=== PATIENT | male | born 1940 | race Caucasian/White ===

== ENCOUNTER 2017-04-11 10:42 | Day surgery (SDC) | payer MEDICARE ==
[~2017-04-11 10:42] MED LIST: ACETAMINOPHEN 1,000 MG/100 ML BTL IV ONE
[2017-04-11] MEDS ORDERED: SEVOFLURANE 250 ML INH ONE (10:43)
[2017-04-11] MEDS ORDERED: ONDANSETRON HCL IV 4 MG/2 ML VIAL IVP ONE (10:43)
[2017-04-11] MEDS ORDERED: KETOROLAC 30 MG/ML VIAL IVP ONE (10:43)
[2017-04-11] MEDS ORDERED: PROPOFOL 10 MG/ML VIAL IV ONE (10:43)
[2017-04-11] MEDS ORDERED: BUPIVACAINE 0.25% W/EPI MPF 30ML VIAL IVP ONE (10:43)
[2017-04-11] MEDS ORDERED: FENTANYL PF 100MCG/2ML VIAL IV ONE (10:43)
[2017-04-11] MEDS ORDERED: MIDAZOLAM HCL 2MG/2ML VIAL IV ONE (10:43)
[2017-04-11] MEDS ORDERED: LIDOCAINE 2% MDV (20MG/ML) 20ML VIAL IV ONE (10:43)
--- NOTE | 2017-04-12 12:31 | Operative Note ---
DATE OF SURGERY: 04/11/2017 Surgeon: Kiran Strauss DO PREOPERATIVE DIAGNOSES: 1. Torn medial meniscus of the right knee. 2. Chondrocalcinosis, right knee. 3. Osteoarthritis, right knee. POSTOPERATIVE DIAGNOSES: 1. Torn lateral meniscus of the right knee. 2. Osteoarthritis, right knee. 3. Synovitis, right knee. 4. Chondrocalcinosis of the right knee. OPERATION: 1. Arthroscopic partial lateral meniscectomy, right knee. 2. Arthroscopic partial synovectomy, right knee (2 compartments). DESCRIPTION OF PROCEDURE: This 76-year-old male was taken to the operating room, placed in the supine position on the operating room table. General anesthesia was induced. The right lower extremity was elevated. It was exsanguinated and the tourniquet inflated to 300 mmHg. Arthroscopic knee miller applied. Right knee prepped with Hibiclens and draped in the usual sterile fashion. An inferolateral portion was established for the 4 mm arthroscope. Initial evaluation of the joint demonstrated very severe osteoarthritis of the patellofemoral joint with the lateral facet and lateral femoral condyle showing full-thickness articular cartilage loss and the remaining articular cartilage showing grade 3 changes. Severe chondrocalcinosis was also present. The intensive synovitis was present and partial synovectomy was performed. The medial compartment was entered and again, more synovitis with chondrocalcinosis was noted. Minimal degenerative changes to the articular cartilage were present there. The meniscus did not demonstrate any significant tearing. The intracondylar notch was seen to be normal. There was chondrocalcinosis there as well. The lateral compartment was entered and a flap tear of the anterior horn and then a radial tear of the body at approximately the 9:30 position was present. We resected back to the apex of the tear anteriorly leaving only about 2-3 mm of rim remaining. Posteriorly it was slightly more, and this tear did not enter the popliteal hiatus. Extensive chondrocalcinosis was present there as well. The meniscus was then re-probed and found to be stable. The articular cartilage of the weightbearing surface of the lateral femoral condyle demonstrated grade 2 changes. The joint was copiously irrigated and suctioned. The portals were infiltrated with 0.25% Marcaine with epinephrine. Sutures were placed in these wounds, 4-0 nylon suture. The sterile dressings were applied and the patient was taken to the recovery room in satisfactory condition. GROSS PATHOLOGY: There was extensive chondrocalcinosis with a severe grade 4 lesion at the patellofemoral articulation laterally with severe grade 3 changes noted throughout the remainder of the patellofemoral joint, grade 2 changes noted in the weightbearing surface of the lateral femoral condyle. There was a complex tear of the lateral meniscus as described and intense synovitis in all compartments and partial synovectomy performed as well. CC: ISABEL FLORES MD, FACP MTDD
== END 2017-04-11 13:50 | disposition home or self-care (01) ==
LOC: SUR 10:42
PROVIDERS: ATTEND Orthopaedic Surgery
DX: S83.281A Other tear of lateral meniscus, current injury, right knee, initial encounter (principal); M11.261 Other chondrocalcinosis, right knee; E11.9 Type 2 diabetes mellitus without complications; Z79.84 Long term (current) use of oral hypoglycemic drugs
CPT/HCPCS: 29881; 29876; 01400; 36416; 82948; J1885; J2405; J3010

== ENCOUNTER 2017-06-03 18:41 | Emergency (ER) | payer MEDICARE ==
[2017-06-03] MEDS ORDERED: ASPIRIN 325 MG TABLET PO ONE (19:11)
--- NOTE | 2017-06-03 19:12 | Emergency Department Record ---
History of Present Illness - General Chief Complaint: Chest Pain Stated Complaint: CHEST AND SHOULDER PAIN Time Seen by Provider: 06/03/17 19:11 Source: Patient Mode of Arrival: Ambulatory - History of Present Illness Initial Comments: The patient states that he developed substernal chest pain around 5 p.m. tonight while watching FB on television. It radiates to both shoulders but NOT to his back. Patient denies nausea, diaphoresis, SOB, ERICKA, palpitations or belching. He describes it as moderate severity and "maybe gas, 'hard to describe.'" He denies NV, PE, DVT, CVA, htn, chol elevation, or ever smoking. He is an oral diabetic. His father of an NV at age 75. [address] Strauss did an arthroscopy on his right knee 04-21-17 and found 'gout , arthritis." Since that time he has had swelling in that leg which is not resolving. He says it is warmer and may be pinker. MD Complaint: Chest pain Onset/Timin -: Hour(s) Onset: During rest Pain Location: Substernal Pain Radiation: RUE, LUE Severity: Moderate Quality: Aching Consistency: Constant Improves With: Nothing Treatments Prior to Arrival: None, Aspirin Treatment Prior to Arrival Comment:: 81mg this am. - Related Data Previous Rx's Medication Instructions Recorded Cephalexin [Keflex] 500 mg PO QID #40 cap 06/03/17 Allergies Allergy/AdvReac Type Severity Reaction Status Date / Time No Known Drug Allergies Allergy Verified 06/03/17 18:52 Travel Screening - Travel/Exposure Within Last 30 Days Have you traveled within the last 30 days?: No - Travel/Exposure Within Last Year Have you traveled outside the [place] in the last year?: No - Additonal Travel Details Have you been exposed to anyone with a communicable illness?: No - Travel Symptoms Symptom Screening: None Review of Systems Reviewed: No additional complaints except as noted below Constitutional: Reports: As per HPI. Denies: Chills, Fever, Malaise, Night sweats, Weakness, Weight change Eyes: Reports: As per HPI. Denies: Eye discharge, Eye pain, Photophobia, Vision change ENT: Reports: As per HPI. Denies: Congestion, Dental pain, Ear pain, Epistaxis , Hearing loss, Throat pain Respiratory: Reports: As per HPI. Denies: Cough, Dyspnea, Hemoptysis, Stridor, Wheezes Cardiovascular: Reports: As per HPI. Denies: Arrhythmia, Chest pain, Dyspnea on exertion, Edema, Murmurs, Orthopnea, Palpitations, Paroxysmal nocturnal dyspnea, Rheumatic Fever, Syncope Endocrine: Reports: As per HPI. Denies: Fatigue, Heat or cold intolerance, Polydipsia, Polyuria Gastrointestinal: Reports: As per HPI. Denies: Abdominal pain, Constipation, Diarrhea, Hematemesis, Hematochezia, Melena, Nausea, Vomiting Genitourinary: Reports: As per HPI. Denies: Dysuria, Frequency, Hematuria, Incontinence, Retention, Testicular pain, Testicular mass, Urgency Musculoskeletal: Reports: As per HPI. Denies: Arthralgia, Back pain, Gout, Joint swelling, Myalgia, Neck pain Skin: Reports: As per HPI. Denies: Bruising, Change in color, Change in hair/ nails, Lesions, Pruritus, Rash Neurological: Reports: As per HPI. Denies: Abnormal gait, Confusion, Headache, Numbness, Paresthesias, Seizure, Tingling, Tremors, Vertigo, Weakness Psychiatric: Reports: As per HPI. Denies: Anxiety, Auditory hallucinations, Depression, Homicidal thoughts, Suicidal thoughts, Visual hallucinations Hematological/Lymphatic: Reports: As per HPI. Denies: Anemia, Blood Clots, Easy bleeding, Easy bruising, Swollen glands Past Medical History - SOCIAL HISTORY Smoking Status: Never smoker Alcohol Use: None Drug Use: None - RESPIRATORY Hx Respiratory Disorders: Yes Hx Bronchitis: Yes - CARDIOVASCULAR Hx Cardio Disorders: No - NEURO Hx Neuro Disorders: No - GI Hx GI Disorders: Yes Hx Pancreatitis: Yes - Hx Genitourinary Disorders: No - ENDOCRINE Hx Endocrine Disorders: Yes Hx Diabetes: Yes (type II) Comment:: doesnt check blood sugar - MUSCULOSKELETAL Hx Musculoskeletal Disorders: Yes Hx Arthritis: Yes (Left knee) - PSYCH Hx Psych Problems: No - HEMATOLOGY/ONCOLOGY Hx Hematology/Oncology Disorders: No Hx Cancer: Yes (lip) Family Medical History Any Significant Family History?: No Hx Cancer: Mother Hx Diabetes: Father Hx Heart Disease: Father Physical Exam - General General Appearance: Alert, Oriented x3, Cooperative, No acute distress - Head Head exam: Normal inspection - Eye Eye exam: Normal appearance, PERRL Pupils: Normal accommodation - ENT ENT exam: Normal exam, Mucous membranes moist, Normal external ear exam, Normal orophraynx, TM's normal bilaterally Ear exam: Normal external inspection. negative: External canal tenderness Nasal Exam: Normal inspection. negative: Discharge, Sinus tenderness Mouth exam: Normal external inspection, Tongue normal Teeth exam: Normal inspection. negative: Dental caries Throat exam: Normal inspection. negative: Tonsillar erythema, Tonsillar exudate - Neck Neck exam: Normal inspection, Full ROM. negative: Tenderness - Respiratory Respiratory exam: Normal lung sounds bilaterally. negative: Respiratory distress - Cardiovascular Cardiovascular Exam: Regular rate, Normal rhythm, Normal heart sounds - GI/Abdominal GI/Abdominal exam: Soft, Normal bowel sounds. negative: Tenderness - Rectal Rectal exam: Deferred - exam: Deferred - Extremities Extremities exam: Normal inspection, Full ROM, Normal capillary refill, Pedal edema (bilateral, right greater than left leg. Right legs is mildly erythematous and warmer than the othe leg to below the knee. Skin is circumferentially tight from the swelling with no distinct calf tenderness.). negative: Tenderness - Back Back exam: Reports: Normal inspection, Full ROM. Denies: Muscle spasm, Rash noted, Tenderness - Neurological Neurological exam: Alert, Normal gait, Oriented X3, Reflexes normal - Psychiatric Psychiatric exam: Normal affect, Normal mood - Skin Skin exam: Dry, Intact, Normal color, Warm Course Vital Signs 06/03/17 18:47 Temperature 97.4 F L Pulse Rate 72 Respiratory 20 Rate Blood Pressure 161/82 Pulse Ox 96 - Reevaluation(s) Reevaluation #1: Patient stats the nitros helped his chest, but he is uncertain if it is completely gone. He states his leg hurts more than his chest ever did. 06/03/17 20:27 Reevaluation #2: It ws recommended for patient to be admitted for chest pain and for right lower leg cellulitis. Patient is refusing amissin and wishes discharge home. He states he will recheck with his PCP this week. but refuses to stay here tonight. He also is refusing to stay for repeat troponin. Son at bedside is unable to change his father's mind. 06/03/17 21:21 Patient is adamant about leaving AMA. He agrees to come back if he changes his mind and to see Dr. Walker in office this week without fail. 06/03/17 21:24 06/03/17 21:33 Medical Decision Making - Management Options MDM Management: Additional Work-up Planned (e.g. ADM/Transfer/OP Study) ( Refusing admission LEAVING AMA) - Data Complexity MDM Data: Labs Ordered and/or Reviewed, X-Ray Ordered and/or Reviewed (CXR Negative per rad.), EKG Ordered and/or Reviewed - Lab Data Result diagrams: 06/03/17 18:58 06/03/17 18:58 - EKG Data -: EKG Interpreted by Me EKG: LBBB (old and unchanged from 04-09-17.) Disposition Clinical Impression: Cellulitis of leg, right Chest pain Qualifiers: Chest pain type: unspecified Qualified Code(s): R07.9 - Chest pain, unspecified Disposition: Against Medical Advice Condition: (1) Good Instructions: Chest Pain (ED), Cellulitis (ED) Additional Instructions: Call Dr. Walker office in a.m to be seen without fail. Return if you change your mind. Keflex 500 mg four times daily as directed. Prescriptions: Cephalexin [Keflex] 500 mg PO QID #40 cap Forms: Patient Portal Access Quality - Quality Measures Quality Measures: N/A - Blood Pressure Screening Does Patient Have Any of the Following: No Blood Pressure Classification: Pre-Hypertensive BP Reading Systolic Measurement: 161 Diastolic Measurement: 82 Screening for High Blood Pressure: < Pre-Hypertensive BP, F/U Documented > [ G8950] Pre-Hypertensive Follow-up Interventions: Follow-up with rescreen every year.
[2017-06-03 19:20] LABS: BASO % 0.4 % (0-6); EOS % 7.2 % (0-6); GRAN % 51.3 % (47-80); HEMATOCRIT 40.8 % (42.0-52.0); HEMOGLOBIN 12.5 gm/dl (14.0-18.0); LYMPH % 28.3 % (16-45); MEAN CELL VOLUME 88.1 fl (81-97); MEAN CORPUSCULAR HGB CONC 30.6 g/dl (32-36); MEAN PLATELET VOLUME 9.9 fl (7.4-10.4); MONO % 12.8 % (0-9); PLATELET COUNT 273 K/uL (130-400); RED BLOOD COUNT 4.63 M/uL (4.40-5.70); RED CELL DISTRIBUTION WIDTH 19.7 % (11.5-14.5); WHITE BLOOD COUNT W/O DIFF 7.1 K/uL (4.2-12.2)
[2017-06-03 19:21] LABS: MEAN CORPUSCULAR HEMOGLOBIN 26.9 pg (27-33)
[2017-06-03] MEDS: NITROGLYCERIN 0.4MG SL TABLET #25 BTL SL PRN ×3 (19:30→19:53)
[2017-06-03 19:32] LABS: INR 1.01; PARTIAL THROMBOPLASTIN TIME 26.6 SECONDS (24.5-39.1); PROTHROMBIN TIME (PATIENT) 10.9 SECONDS (9.5-12.1)
[2017-06-03 19:37] LABS: BLOOD UREA NITROGEN 14 mg/dL (8-23); GLUCOSE,RANDOM 287 mg/dL (74-109)
[2017-06-03 19:38] LABS: ALB/GLOB RATIO 1.3 (1.1-1.8); ALBUMIN 3.9 g/dL (4.0-5.0); ALKALINE PHOSPHATASE 72 U/L (40-129); ALT/SGPT 26 U/L (<41); AST/SGOT 22 U/L (10.0-50.0); EST GLOMERULAR FILTRATION RATE > 60 mL/min; TOTAL PROTEIN 6.9 g/dL (6.6-8.7)
[2017-06-03 19:50] LABS: THYROID STIMULATING HORMONE 4.64 uIU/mL (0.270-4.20)
[2017-06-03] MEDS ORDERED: CEFAZOLIN 1 Gram 1 GM/50 ML BAG IVPB ONE (20:18)
[2017-06-03] MEDS ORDERED: MORPHINE SULFATE 5 MG/ML PFS IVP ONE (20:28)
[2017-06-03] MEDS ORDERED: CEFTRIAXONE SODIUM 2 GM in 0.9 % SODIUM CHLORIDE 100ML 100 ML IVPB ONE (21:22)
[2017-06-03] MEDS ORDERED: AZITHROMYCIN 500 MG TABLET PO ONE (21:23)
--- NOTE | 2017-06-04 09:44 | RADIOLOGY REPORT ---
EXAM: CHEST, TWO VIEWS HISTORY: CHEST PAIN RADIATING TO BOTH SHOULDERS. TECHNIQUE: Two views of the chest were obtained. Comparison: 10/16/14. FINDINGS: The heart is not enlarged. The lungs and pleural spaces are clear. Mild to moderate degenerative changes of the thoracic spine. IMPRESSION: NO ACUTE CARDIOPULMONARY ABNORMALITY. JOB NUMBER: [id number] MTDD
== END 2017-06-03 21:51 | disposition left against medical advice (07) ==
LOC: ER 18:41
DX: R07.2 Precordial pain (principal); L03.115 Cellulitis of right lower limb; E11.9 Type 2 diabetes mellitus without complications; Z79.84 Long term (current) use of oral hypoglycemic drugs
CPT/HCPCS: 99284 ×2; 96374; 85025; 85730; 85610; 80053; 84443; 84484; 83880; 71020; 93005; 93010; J0690

== ENCOUNTER 2017-07-01 10:10 | Day surgery (SDC) | payer MEDICARE ==
[2017-07-01] MEDS ORDERED: PROPOFOL 10 MG/ML VIAL IV ONE (10:11)
[2017-07-01] MEDS ORDERED: LIDOCAINE 2% MDV (20MG/ML) 20ML VIAL IV ONE (10:11)
--- NOTE | 2017-07-02 12:30 | Operative Note ---
DATE OF SURGERY: 07/01/2017 OPERATION: COLONOSCOPY to the ascending colon with multiple biopsies and ink spot tattoo. INDICATION: Iron deficiency anemia. HISTORY: The patient is a pleasant 76-year-old gentleman seen today for colonoscopy for the above history of iron deficiency anemia. This is his first colonoscopy. He denies bleeding or abdominal pain. His hemoglobin was in the 10 range and with iron supplements went up to 12. ANESTHESIA: Intravenous sedation was administered by the department of anesthesiology and included Diprivan titrated to effect. PROCEDURE: Following informed consent from this alert individual including a discussion of the risks and benefits of the procedure and an opportunity for the patient to ask questions, the patient was in the left lateral decubitus position. A digital rectal examination was performed. No abnormalities were noted. Following this, the Olympus CF180 video colonoscope was inserted into the rectum without resistance. The rectal mucosa as visualized had a normal appearance with normal folds and distensibility. The sigmoid colon had significant diverticulosis with redundancy. There was also a fair amount of retained liquid and solid stool noted. The colonoscope could be advanced through the descending colon into the transverse colon and ascending colon with some difficulty due to the poor preparation. Multiple attempts at cannulating the cecal base were unsuccessful despite abdominal pressure support. In the ascending colon, there was a large 5 cm mass noted. Multiple biopsies of the lesion were obtained. This site was then injected with ink spot, as its exact location is not perfectly clear due to inability to evaluate the cecal base. I believe it is most likely in the ascending colon. From this point, the colonoscope was then withdrawn. Again extensive diverticulosis was noted in the left colon, predominantly in the sigmoid region. There was retained stool noted throughout with washing and suctioning employed vigorously but still with fair visualization at best. The endoscope was then drawn back into the rectum where retroflexion accomplished following air insufflation revealed small internal hemorrhoids. The endoscope was then removed. The patient tolerated the procedure well and was returned to the recovery area in stable condition. IMPRESSION: 1. A 5 cm ascending colon mass, biopsies taken and ink spot tattooing applied to the site. 2. Inability to reach the cecal base due to marked redundancy of the left colon and poor preparation. 3. Extensive sigmoid diverticulosis. 4. Small internal hemorrhoids. RECOMMENDATIONS: At this point, further recommendations will be forthcoming pending results of biopsy but I would make a referral to Dr. Marvin Gasca for anticipated colon resection. Further recommendations pending. Followup will be with Dr. Walker as well. As always, thank you for allowing me to participate in the care of your patient. CC: ISABEL WALKER MD, FACP Dr. Campos JUAREZ
== END 2017-07-01 12:45 | disposition home or self-care (01) ==
LOC: HOP 10:10
PROVIDERS: ATTEND Internal Medicine Gastroenterology
DX: D50.9 Iron deficiency anemia, unspecified (principal); C18.2 Malignant neoplasm of ascending colon; K57.30 Diverticulosis of large intestine without perforation or abscess without bleeding; E11.9 Type 2 diabetes mellitus without complications; Z79.4 Long term (current) use of insulin; K64.8 Other hemorrhoids

== ENCOUNTER 2018-04-12 14:20 | Emergency (ER) | payer MEDICARE ==
--- NOTE | 2018-04-12 14:40 | Emergency Department Record ---
History of Present Illness - General Chief Complaint: Fall Injury Stated Complaint: FALL/LOWER BACK INJURY Time Seen by Provider: 04/12/18 14:31 Source: Patient, RN notes reviewed Mode of Arrival: Ambulatory - History of Present Illness Initial Comments: fall on the ice using a bull dozer complaining of lumbar pback pain L5 MD Complaint: Fall Onset/Timin -: Days(s) Fall From: Standing Fall Witnessed: Yes, by family Place Fall Occurred: Work Loss of Consciousness: None Prolonged Down Time?: No Symptoms Prior to Fall: None - Michael Coma Scale Eye Response: (4) Open spontaneously Motor Response: (6) Obeys commands Verbal Response: (5) Oriented Michael Total: 15 - Related Data Previous Rx's Medication Instructions Recorded Hydrocodone/Acetaminophen [[place] 1 each PO Q4HR #18 tablet 04/12/18 5-325 Tablet] Allergies Allergy/AdvReac Type Severity Reaction Status Date / Time No Known Drug Allergies Allergy Verified 04/12/18 14:32 Travel Screening - Travel/Exposure Within Last 30 Days Have you traveled within the last 30 days?: No - Travel/Exposure Within Last Year Have you traveled outside the [place] in the last year?: No - Additonal Travel Details Have you been exposed to anyone with a communicable illness?: No - Travel Symptoms Symptom Screening: None Review of Systems Reviewed: No additional complaints except as noted below Constitutional: Reports: As per HPI. Denies: Chills, Fever, Malaise, Night sweats, Weakness, Weight change Eyes: Reports: As per HPI. Denies: Eye discharge, Eye pain, Photophobia, Vision change ENT: Reports: As per HPI. Denies: Congestion, Dental pain, Ear pain, Epistaxis , Hearing loss, Throat pain Respiratory: Reports: As per HPI. Denies: Cough, Dyspnea, Hemoptysis, Stridor, Wheezes Cardiovascular: Reports: As per HPI. Denies: Arrhythmia, Chest pain, Dyspnea on exertion, Edema, Murmurs, Orthopnea, Palpitations, Paroxysmal nocturnal dyspnea, Rheumatic Fever, Syncope Endocrine: Reports: As per HPI. Denies: Fatigue, Heat or cold intolerance, Polydipsia, Polyuria Gastrointestinal: Reports: As per HPI. Denies: Abdominal pain, Constipation, Diarrhea, Hematemesis, Hematochezia, Melena, Nausea, Vomiting Genitourinary: Reports: As per HPI. Denies: Dysuria, Frequency, Hematuria, Incontinence, Retention, Testicular pain, Testicular mass, Urgency Musculoskeletal: Reports: As per HPI, Back pain. Denies: Arthralgia, Gout, Joint swelling, Myalgia, Neck pain Skin: Reports: As per HPI. Denies: Bruising, Change in color, Change in hair/ nails, Lesions, Pruritus, Rash Neurological: Reports: As per HPI. Denies: Abnormal gait, Confusion, Headache, Numbness, Paresthesias, Seizure, Tingling, Tremors, Vertigo, Weakness Psychiatric: Reports: As per HPI. Denies: Anxiety, Auditory hallucinations, Depression, Homicidal thoughts, Suicidal thoughts, Visual hallucinations Hematological/Lymphatic: Reports: As per HPI. Denies: Anemia, Blood Clots, Easy bleeding, Easy bruising, Swollen glands Past Medical History - SOCIAL HISTORY Smoking Status: Never smoker Alcohol Use: None Drug Use: None - RESPIRATORY Hx Respiratory Disorders: Yes Hx Bronchitis: Yes - CARDIOVASCULAR Hx Cardio Disorders: No - NEURO Hx Neuro Disorders: No - GI Hx GI Disorders: Yes Hx Pancreatitis: Yes - Hx Genitourinary Disorders: No - ENDOCRINE Hx Endocrine Disorders: Yes Hx Diabetes: Yes (type II) Comment:: doesnt check blood sugar - MUSCULOSKELETAL Hx Musculoskeletal Disorders: Yes Hx Arthritis: Yes (Left knee) - PSYCH Hx Psych Problems: No - HEMATOLOGY/ONCOLOGY Hx Hematology/Oncology Disorders: No Hx Cancer: Yes (lip) Family Medical History Any Significant Family History?: Yes Hx Cancer: Mother Hx Diabetes: Father Hx Heart Disease: Father Physical Exam - General General Appearance: Alert, Oriented x3, Cooperative, No acute distress - Head Head exam: Normal inspection - Eye Eye exam: Normal appearance, PERRL Pupils: Normal accommodation - ENT ENT exam: Normal exam, Mucous membranes moist, Normal external ear exam, Normal orophraynx, TM's normal bilaterally Ear exam: Normal external inspection. negative: External canal tenderness Nasal Exam: Normal inspection. negative: Discharge, Sinus tenderness Mouth exam: Normal external inspection, Tongue normal Teeth exam: Normal inspection. negative: Dental caries Throat exam: Normal inspection. negative: Tonsillar erythema, Tonsillar exudate - Neck Neck exam: Normal inspection, Full ROM. negative: Tenderness - Respiratory Respiratory exam: Normal lung sounds bilaterally. negative: Respiratory distress - Cardiovascular Cardiovascular Exam: Regular rate, Normal rhythm, Normal heart sounds - GI/Abdominal GI/Abdominal exam: Soft, Normal bowel sounds. negative: Tenderness - Rectal Rectal exam: Deferred - exam: Deferred - Extremities Extremities exam: Normal inspection, Full ROM, Normal capillary refill. negative: Tenderness - Back Back exam: Reports: Normal inspection, Full ROM. Denies: Muscle spasm, Rash noted, Tenderness - Neurological Neurological exam: Alert, Normal gait, Oriented X3, Reflexes normal - Psychiatric Psychiatric exam: Normal affect, Normal mood - Skin Skin exam: Dry, Intact, Normal color, Warm Course Vital Signs 04/12/18 14:23 Temperature 98.3 F Pulse Rate 94 H Respiratory 18 Rate Blood Pressure 150/94 Pulse Ox 97 Medical Decision Making - Data Complexity MDM Data: X-Ray Ordered and/or Reviewed (no evidence of lumbar compression fracture) Disposition Clinical Impression: Lumbar contusion Qualifiers: Encounter type: initial encounter Qualified Code(s): S30.0XXA - Contusion of lower back and pelvis, initial encounter Disposition: Home, Self-Care Condition: (1) Good Instructions: Contusion in Adults (ED) Additional Instructions: follow up with Dr Walker or Lissa in 4-7 days for mild to moderate pain use tylenol or ibuprofin Prescriptions: Hydrocodone/Acetaminophen [[place] 5-325 Tablet] 1 each PO Q4HR #18 tablet Forms: Patient Portal Access Time of Disposition: 15:37 Quality - Quality Measures Quality Measures: N/A - Blood Pressure Screening Does Patient Have Any of the Following: No Blood Pressure Classification: Hypertensive Reading Systolic Measurement: 150 Diastolic Measurement: 94 Screening for High Blood Pressure: < First Hypertensive BP, F/U Documented > [ G8950] First Hypertensive Follow-up Interventions: Referral to alternative/primary care provider.
--- NOTE | 2018-04-14 08:13 | RADIOLOGY REPORT ---
EXAM: LUMBAR SPINE, FIVE VIEWS HISTORY: FALL YESTERDAY LANDING ON TAILBONE, TAILBONE PAIN. TECHNIQUE: AP, lateral, bilateral obliques, and cone down view of the lumbar spine were obtained. Comparison: CT of the abdomen and pelvis 07/08/17. Encounter: Initial. FINDINGS: Five lumbar vertebral bodies. No visible spondylolysis. Alignment and vertebral body heights are maintained. Moderate to severe disk space narrowing at L1-L2, L2-L3, L4-L5, and L5-S1 with multilevel end plate spurring and large syndesmophytes. Facet arthropathy is greatest in the lower lumbar spine. IMPRESSION: 1. NO EVIDENCE FOR LUMBAR SPINE COMPRESSION FRACTURE. 2. MULTILEVEL DEGENERATIVE CHANGES. J[facility]BER: [id number] [facility]
== END 2018-04-12 16:09 | disposition home or self-care (01) ==
LOC: ER 14:20
DX: S30.0XXA Contusion of lower back and pelvis, initial encounter (principal); W01.198A Fall on same level from slipping, tripping and stumbling with subsequent striking against other object, initial encounter; Y99.0 Civilian activity done for income or pay; E11.9 Type 2 diabetes mellitus without complications; Z79.84 Long term (current) use of oral hypoglycemic drugs
CPT/HCPCS: 72110; 99283

== ENCOUNTER 2018-06-19 06:33 | Day surgery (SDC) | payer MEDICARE ==
[~2018-06-19 06:33] MED LIST changes: -ACETAMINOPHEN 1,000 MG/100 ML BTL IV ONE; +CEFAZOLIN 2 Gram 2 GM/50 ML BAG IVPB ONE; +CELECOXIB 100 MG CAPSULE PO ONE; +FAMOTIDINE 20MG TABLET PO ONE; +MECLIZINE 25 MG TABLET PO ONE; +METOCLOPRAMIDE 10 MG TABLET PO ONE
[2018-06-19] MEDS ORDERED: LIDOCAINE 2% MDV (20MG/ML) 20ML VIAL IV ONE (06:34)
[2018-06-19] MEDS ORDERED: MIDAZOLAM HCL 2MG/2ML VIAL IV ONE (06:34)
[2018-06-19] MEDS ORDERED: PROPOFOL 10 MG/ML VIAL IV ONE (06:34)
[2018-06-19] MEDS ORDERED: DEXAMETHASONE 4 MG/ML 1ML VIAL IVP ONE (06:34)
[2018-06-19] MEDS ORDERED: ROPIVACAINE HCL (NAROPIN) /PF 5MG/ML 20ML VIAL IV ONE (06:34)
[2018-06-19] MEDS ORDERED: ONDANSETRON HCL IV 4 MG/2 ML VIAL IVP PRN (09:45)
[2018-06-19] MEDS ORDERED: ZOLPIDEM TARTRATE 5 MG TABLET PO PRN (09:45)
[2018-06-19] MEDS ORDERED: HYDROMORPHONE HCL 2 MG/ML VIAL IV PRN (09:45)
[2018-06-19] MEDS ORDERED: DIPHENHYDRAMINE HCL 25 MG CAPSULE PO PRN (09:45)
[2018-06-19] MEDS ORDERED: METOCLOPRAMIDE HCL 10 MG/2 ML VIAL IVP PRN (09:45)
[2018-06-19] MEDS ORDERED: AL HYDROX/MAG HYDROX 30ML UD PO PRN (09:45)
[2018-06-19] MEDS ORDERED: ACETAMINOPHEN 325 MG TAB PO PRN (09:45)
[2018-06-19] MEDS ORDERED: SENNOSIDES/DOCUSATE SODIUM UD CAPSULE PO PRN (09:45)
[2018-06-19] MEDS ORDERED: TRAMADOL HCL 50 MG TABLET PO PRN ×2 (09:45)
[2018-06-19] MEDS ORDERED: OXYCODONE HCL/APAP 5MG/325MG TABLET PO PRN (09:45)
[2018-06-19] MEDS: RINGERS SOLUTION,LACTATED 1,000 ML IV SCH ×2 (09:45→15:42)
[2018-06-19] MEDS ORDERED: MAGNESIUM HYDROXIDE 30 ML UDC PO PRN (09:45)
[2018-06-19] MEDS ORDERED: RINGERS SOLUTION,LACTATED 1,000 ML IV PRN (10:36)
[2018-06-19] MEDS ORDERED: TRANEXAMIC ACID 1,000 MG in 0.9 % SODIUM CHLORIDE 100ML 100 ML IVPB ONE (11:00)
[2018-06-19] MEDS: PANTOPRAZOLE SODIUM 40 MG TABLET PO SCH (13:41)
--- NOTE | 2018-06-19 13:56 | Rehab Evaluation ---
Patient Information - Patient Information Diagnosis: L knee OA Ordered Treatment: PT Evaluate and Treat Status: Initial Evaluation Surgery: Yes (L TKA) Date of Surgery: 06/19/18 Past Medical/Surgical Hx: PAST MEDICAL/SURGICAL HISTORY Past Surgical History bilateral shoulder sx lumbar fusion surekha PMH - Respiratory Hx Respiratory Disorders Yes Hx Bronchitis Yes PMH - Cardiovascular Hx Cardiovascular Disorders No Exercise Tolerance Good PMH - Neuro Hx Neurological Disorders No PMH - GI Hx Gastrointestinal Disorders Yes Hx Pancreatitis Yes PMH - Hx Genitourinary Disorders No PMH - Endocrine Hx Endocrine Disorders Yes Hx Diabetes Yes: type II Hx of NIDDM Yes Comment: doesnt check blood sugar PMH - Musculoskeletal Hx Musculoskeletal Disorders Yes Hx Arthritis Yes: Left knee Comment: lumbar lami hx PMH - Psych Hx Psychiatric Problems No PMH - Hematology/Oncology Hx Hematology/Oncology No Disorders Hx Cancer Yes: lip Premorbid Status: Detail (The patient was independent with all mobility prior to surgery.) Social History: Detail (The patient lives alone in a one story house with 2 small steps at the enterance with 2 railings. The bathroom is equipped with a walk in shower, grab bars and a hand held shower and an elevated toilet seat with grab bars. The patient reports he has a standard walker and a 4 wheeled walker "somewhere" and a standard cane. ( Patient was instructed to let PT staff know if he needed a walker DANY.)) Precautions: [place], Fall, Other (WBAT on the L LE) - Time With Patient Total Time Spent With Patient (Min): 30 Treatment Procedures: Detail (Initial Evaluation, gait training) Subjective Information - Subjective Information Per Patient (The patient had minimal complaints of L knee pain and did not rate his pain using 0-10 pain scale.) Objective Data - Mental Status Patient Orientation: Oriented x3 - Visual Perception Appears within normal limits for therapeutic activities - ROM Not within normal limits (The patient's L knee AROM is limited s/p surgery . All other AROM was WFL.) - Strength/Tone Not within normal limits (The patient's L LE strength was not tested secondary to s/p surgery however patient required minimal assist to lift L LE into bed. The patient's R LE strength was generally 4+ to 5/5.) - Bed Mobility Needs Assist (The patient was independent with scooting up in bed. The patient required minimal PA to lift L LE with supine to and from sit, the patient was independent with upper body.) - Transfers Independent (The patient was independent with sit to and from stand transfer.) - Balance Balance Sitting: Good Balance Standing: Good - Sensation Intact - Gait Detail (The patient ambulated with standard walker a distance of 37 feet x 1 WBAT on the L LE with supervision for safety only of 1. The patient returned to bed with call light within reach, ice pack and pressure garments in place.) Therapy Assessment - Therapy Assessment Detail (The patient was independent with sit to stand transfer, required minimal PA to lift L LE for supine to sit and supervision only for ambulation. Feel the patient will progress well with mobility.) Problem List - Problem List Physical Therapy Problem List: Detail (1) Decreased L knee AROM as to be expected following surgery 2) Decreased L LE strength as to be expected following surgery 3) Impaired gait as to be expected following surgery) Goals - Goals Physical Therapy Goals: 1) The patient will ambulate independently with appropriate assistive device WBAT on the L LE a distance 75 feet plus. 2) The patient will ambulate on stairs using proper technique with supervision for safety. 3) The patient will be independent with bed mobility. 4) The patient will be independent with TKA HEP. Prognosis - Prognosis Good Plan - Plan Physical Therapy Plan: PT 1-2 visits for gait training on levels and stairs, bed mobility and instruction in TKA HEP.
[2018-06-19] MEDS: OXYCODONE HCL/APAP 5MG/325MG TABLET PO PRN ×2 (14:41→22:25)
[2018-06-19] MEDS: CEFAZOLIN 2 Gram 2 GM/50 ML BAG IVPB SCH ×2 (15:41→23:33)
[2018-06-19] MEDS: GLIPIZIDE 5 MG TABLET PO SCH (22:26)
[2018-06-19] MEDS: METFORMIN 500 MG TABLET PO SCH (22:26)
[2018-06-19] MEDS: ASPIRIN 325 MG TAB ENTERIC-COATED PO SCH (22:26)
[2018-06-20] MEDS: OXYCODONE HCL/APAP 5MG/325MG TABLET PO PRN (05:00)
[2018-06-20 07:15] LABS: HEMATOCRIT 29.8 % (42.0-52.0); MEAN CELL VOLUME 87.6 fl (81-97); MEAN CORPUSCULAR HEMOGLOBIN 26.4 pg (27-33); MEAN CORPUSCULAR HGB CONC 30.2 g/dl (32-36); MEAN PLATELET VOLUME 9.3 fl (7.4-10.4); PLATELET COUNT 213 K/uL (130-400); WHITE BLOOD COUNT W/O DIFF 7.2 K/uL (4.2-12.2)
[2018-06-20] MEDS: PANTOPRAZOLE SODIUM 40 MG TABLET PO SCH (07:56)
[2018-06-20] MEDS: CEFAZOLIN 2 Gram 2 GM/50 ML BAG IVPB SCH (07:57)
[2018-06-20] MEDS: RINGERS SOLUTION,LACTATED 1,000 ML IV SCH (08:41)
--- NOTE | 2018-06-20 08:50 | Operative Note ---
DATE OF SURGERY: 06/19/2018 Surgeon: Kiran Strauss DO Referring physician: Ted Walker MD, FACP PREOPERATIVE DIAGNOSIS: Primary osteoarthritis of the left knee. POSTOPERATIVE DIAGNOSIS: Primary osteoarthritis of the left knee. OPERATION: Left total knee arthroplasty. Anesthesia: Spinal. PROCEDURE: This 77-year-old male was taken to the operating room and placed in the supine position on the operating room table, spinal anesthesia was induced. The left lower extremity was elevated, prepped with Hibiclens and draped in the usual sterile fashion. It was exsanguinated and the tourniquet inflated to 300 mmHg. All scrubbed personnel wore personal isolation suits. An anterior longitudinal midline incision was made, followed by a medial parapatellar arthrotomy incision. An intracondylar drill hole was made for the intramedullary alignment ladonna. The cutting block for the distal femur was affixed at a 6 degree valgus 10 mm cut. The wafer of bone was then removed and the sizing jig was affixed and a size 72.5 was seen to be the appropriate size. A 4-in-1 cutting block was pinned in 3 degrees of external rotation and appropriate cuts were made. We then directed our attention to the proximal tibia. An extramedullary alignment guide was used to cut the proximal tibia, referencing a 10 mm cut off the lateral tibial plateau. After the cutting block was appropriately positioned, a 3 degree posterior slope cut was made and the wafer of bone was removed. We then removed remnants of the menisci and osteophytes from the posterior aspect of the joint. The tibia was sized to a size 83, a stem punch was used. The wound copiously irrigated with pulse lavage lactated Ringer's solution. The trial components inserted were a 72.5 cruciate-retaining femur and a 10 mm bearing, gave us full extension and full flexion and excellent stability throughout the range of motion. The patella was cut and restored to anatomic height with a 37 x 8.6 mm patella. Then, all trial components were removed and the wound again copiously irrigated with pulse lavage lactated Ringer's solution. All bony surfaces were dried. All components were cemented and excess cement removed after the insertion of each component. Initially, the size 83 tibial baseplate was inserted, followed by the 10 mm bearing, followed by the femur, and subsequently the patella. Once the cement had hardened, the knee was again taken through range of motion and all components stable and the knee was seen to be satisfactory with full extension and flexion easily to 130 to 135 degrees. The wound again copiously irrigated with lactated Ringer's solution and a drain placed in the knee and the arthrotomy incision closed with a 2 Vicryl in the capsule and the subcutaneous tissue closed with 0 Vicryl. The skin was stapled and sterile dressings were applied with a Polar Care and the patient taken to the recovery room in satisfactory condition. GROSS PATHOLOGY: This patient demonstrated severe osteoarthritis, tri-compartmental full-thickness articular cartilage loss noted in all areas. Final components inserted were a [employer] Vanguard size 72.5 cruciate retaining femur, an 83 tibial baseplate, a 10 mm anterior stabilized bearing, and a 37 x 8.6 mm patella was used. ANN
[2018-06-20] MEDS: METFORMIN 500 MG TABLET PO SCH (09:16)
[2018-06-20] MEDS: GLIPIZIDE 5 MG TABLET PO SCH (09:33)
[2018-06-20] MEDS: ASPIRIN 325 MG TAB ENTERIC-COATED PO SCH (09:33)
[2018-06-20] MEDS ORDERED: CELECOXIB 100 MG CAPSULE PO SCH (10:00)
--- NOTE | 2018-06-20 12:46 | Rehab Evaluation ---
Patient Information - Patient Information Diagnosis: L knee OA Ordered Treatment: OT Evaluate and Treat Status: Initial Evaluation Surgery: Yes (L TKA) Date of Surgery: 06/19/18 Past Medical/Surgical Hx: PAST MEDICAL/SURGICAL HISTORY Past Surgical History bilateral shoulder sx lumbar fusion surekha PMH - Respiratory Hx Respiratory Disorders Yes Hx Bronchitis Yes PMH - Cardiovascular Hx Cardiovascular Disorders No Exercise Tolerance Good PMH - Neuro Hx Neurological Disorders No PMH - GI Hx Gastrointestinal Disorders Yes Hx Pancreatitis Yes PMH - Hx Genitourinary Disorders No PMH - Endocrine Hx Endocrine Disorders Yes Hx Diabetes Yes: type II Hx of NIDDM Yes Comment: doesnt check blood sugar PMH - Musculoskeletal Hx Musculoskeletal Disorders Yes Hx Arthritis Yes: Left knee Comment: lumbar lami hx PMH - Psych Hx Psychiatric Problems No PMH - Hematology/Oncology Hx Hematology/Oncology No Disorders Hx Cancer Yes: lip Premorbid Status: Detail (The patient was independent with all mobility, home mgmt, meal prep and laundry prior to surgery.) Social History: Detail (The patient lives alone in a one story house with 2 small steps at the entrance with no railings. The bathroom is equipped with a walk in shower, grab bars and a hand held shower and an elevated toilet seat with grab bars. The patient reports he has a standard walker and a 4 wheeled walker "somewhere" and a standard cane.) Precautions: [place], Fall, Other (WBAT on the L LE) - Time With Patient Total Time Spent With Patient (Min): 55 Treatment Procedures: Detail (OT eval low complexity) Subjective Information - Subjective Information Per Patient Objective Data - Pain Pain Present: Yes (08/10) - Mental Status Patient Orientation: Oriented x3 - Visual Perception Appears within normal limits for therapeutic activities - ROM Within normal limits (Reinaldo UE AROM WNL) - Strength/Tone Within normal limits (Reinaldo UE strength WNL) - Coordination Appears within normal limits for therapeutic activities - Bed Mobility Needs Assist (Pt required mod assist x 1 for supine to sit.) - Transfers Needs Assist (Min assist for sit to stand from EOB. He required bed raised to be able to stand from sitting.) - Balance Balance Sitting: Good Balance Standing: Fair - Sensation Intact - Gait Detail (Pt ambulating in room with standard walker and CG assist.) - ADL's/IADL's Detail (Pt educated on modified LE dressing techniques. He was Ind with doffing briefs, donning underwear and sweat pants as well as slip on slippers. He required assist to doff left slipper sock. Pt reports he has a case assembler and sock "spoon" that he can use for modified LE dressing. Reviewed kitchen and shower safety, pt verbalized understanding.) Therapy Assessment - Therapy Assessment Detail (Pt requires assist for supine to sit and partial LE dressing, he reports family will be available.) Problem List - Problem List Physical Therapy Problem List: Detail (1) Decreased L knee AROM as to be expected following surgery 2) Decreased L LE strength as to be expected following surgery 3) Impaired gait as to be expected following surgery) Occupational Therapy Problem List: Detail (No IP OT problems identified.) Goals - Goals Physical Therapy Goals: 1) The patient will ambulate independently with appropriate assistive device WBAT on the L LE a distance 75 feet plus. 2) The patient will ambulate on stairs using proper technique with supervision for safety. 3) The patient will be independent with bed mobility. 4) The patient will be independent with TKA HEP. Occupational Therapy Goals: No current IP OT goals identified. Prognosis - Prognosis Good Plan - Plan Physical Therapy Plan: PT 1-2 visits for gait training on levels and stairs, bed mobility and instruction in TKA HEP. Occupational Therapy Plan: No further IP OT recommended. Thank you for this referral.
== END 2018-06-20 14:30 | disposition home or self-care (01) ==
LOC: SUR 06:33 → MEDSURG 10:16 → SUR 06-20 14:30
PROVIDERS: ATTEND Orthopaedic Surgery
DX: M17.12 Unilateral primary osteoarthritis, left knee (principal); E11.9 Type 2 diabetes mellitus without complications
CPT/HCPCS: 27447; 01402; 64447; 85025; J0690 ×2; J3490; J2795; 76942; 97530; J7120